=== PATIENT | female | born 1940 | race Hispanic/Latino ===

== ENCOUNTER 2018-01-20 17:29 | Emergency (ER) | payer MEDICARE ==
[~2018-01-20] VITALS: Ht 162.6 cm; Wt 68.0 kg
[~2018-01-20 17:29] MED LIST: MELOXICAM; Z.0.NORVASC2.5 MG; [UNRECOGNIZED DRUG - OTHER]; [UNRECOGNIZED DRUG - OTHER]
--- NOTE | 2018-01-20 18:38 | Diagnostic Imaging Report ---
History:Trauma Comparison studies: None Technique: Axial images were obtained from the skull base to the vertex. Coronal and sagittal images reconstructed from the axial data. Intravenous contrast: None Findings: Scalp/skull: An acute right periorbital superficial hematoma is not associated with subcutaneous emphysema or with hyperdense foreign bodies. No underlying fractures. Extra-axial spaces: No masses. No fluid collections. Brain sulci: Mildly prominent. Ventricles: Mild compensatory dilatation. No hydrocephalus. Parenchyma: Ill defined confluent hypodensities in the supratentorial white matter are small vessel ischemic changes. No masses, hemorrhage, acute or chronic cortical vascular insults. Sellar/suprasellar region: No abnormalities. Craniocervical junction: Patent foramen magnum. No Chiari one malformation. Incidental findings: Lens implants in place Atherosclerotic calcifications in the carotid siphons and vertebral arteries Impression: 1. Acute right periorbital superficial hematoma. No fractures. 2. No acute intracranial abnormalities. Chronic findings: 1. Mild generalized volume loss. 2. Moderate supratentorial white matter small vessel ischemic changes. Signed by: Dr. Seamus Bah M.D. on 01/20/2018 6:34 PM
--- NOTE | 2018-01-20 18:43 | Diagnostic Imaging Report ---
History: Trauma Comparison studies: Cervical spine CT on 01/20/2012 Technique: Axial images were obtained through the cervical region.. Coronal and sagittal images reconstructed from the axial data.. Intravenous contrast: None Findings: Fractures: None. Soft tissues: No gross abnormalities. Atlantoaxial articulation: Intact. Alignment: Normal lordosis. No scoliosis. Cervicomedullary junction: No abnormalities. The foramen magnum is patent. Vertebrae: No infection or neoplasm. Degenerative changes: Moderate at the atlantoaxial articulation. Mildly degenerated disks at C4-5 and C5-6, moderate at C6-C7. Moderate facet arthrosis on the left at C3-4, right at C4-5, bilaterally at C5-6 and C6-7 Foraminal stenosis, mild right at C3-C4, severe right, moderate left at C4-5, moderate bilaterally from C5 to T1 Degenerative spinal canal stenosis, mild at C3-4, moderate from C5 to C7 due to disc osteophyte complexes. Incidental findings: Atherosclerotic calcifications at the carotid bulbs. IMPRESSION: 1. No acute abnormalities. 2. Cannot adequately assess for ligament, spinal cord and or vascular abnormalities. 3. Degenerative spinal canal and foraminal stenosis as described. Signed by: Dr. Seamus Bah M.D. on 01/20/2018 6:39 PM
--- NOTE | 2018-01-20 18:54 | Diagnostic Imaging Report ---
PROCEDURE:X-RAY LEFT WRIST, COMPLETE COMPARISON:None. INDICATIONS:FALL WRIST PAIN FINDINGS: Marked generalized osteopenia, which limits evaluation of the bony structures. Acute, likely comminuted, intra-articular nondisplaced fracture of the distal radial metaphysis. Other bony structures show no acute, displaced fractures or dislocations. Carpal bones remain aligned with the radius Degenerative changes in the first finger carpal metacarpal joint. No lytic or blastic lesion. Soft tissue swelling surrounding the wrists. CONCLUSION: Marked generalized osteopenia, which limits evaluation of the bony structures. Acute, likely comminuted, intra-articular, nondisplaced fracture of the distal radial metaphysis Koffi Mahoney M.D. Dictated by: Koffi Mahoney M.D. on 01/20/2018 at 18:58 Electronically approved by: Koffi Mahoney M.D. on 01/20/2018 at 18:58
--- NOTE | 2018-01-20 18:55 | Diagnostic Imaging Report ---
PROCEDURE:X-RAY LEFT ELBOW, COMPLETE COMPARISON:None. INDICATIONS:FALL, ELBOW PAIN FINDINGS: Marked generalized osteopenia, which limits evaluation of the bony structures. No acute, displaced fracture or dislocation, within the limitations of the study. No lytic or blastic lesions. No anterior or posterior fat pad elevation. No significant soft tissue swelling. CONCLUSION: Marked generalized osteopenia, which limits evaluation of the bony structures. No acute, displaced fracture or dislocation, within the limitations of the study. Koffi Mahoney M.D. Dictated by: Koffi Mahoney M.D. on 01/20/2018 at 18:59 Electronically approved by: Koffi Mahoney M.D. on 01/20/2018 at 18:59
--- NOTE | 2018-01-20 18:56 | Diagnostic Imaging Report ---
PROCEDURE:X-RAY LEFT SHOULDER, COMPLETE COMPARISON:None. INDICATIONS:FALL, SHOULDER PAIN FINDINGS: Marked generalized osteopenia, which limits evaluation of the bony structures. No acute, displaced fracture or dislocation. No lytic or blastic lesion. Glenohumeral joint is grossly unremarkable. Mild degenerative changes in the acromioclavicular joint. Visualized portions of the left lung are clear. No soft tissue abnormalities. CONCLUSION: Marked generalized osteopenia, which limits evaluation of the bony structures. No acute, displaced fracture or dislocation, within the limitations of the study. Koffi Mahoney M.D. Dictated by: Koffi Mahoney M.D. on 01/20/2018 at 19:00 Electronically approved by: Koffi Mahoney M.D. on 01/20/2018 at 19:00
== END 2018-01-20 20:22 | disposition home or self-care (01) ==
LOC: ER 17:29
DX: S00.83XA Contusion of other part of head, initial encounter (principal); S52.572A Other intraarticular fracture of lower end of left radius, initial encounter for closed fracture; S50.12XA Contusion of left forearm, initial encounter; S40.022A Contusion of left upper arm, initial encounter; W01.0XXA Fall on same level from slipping, tripping and stumbling without subsequent striking against object, initial encounter; Y92.512 Supermarket, store or market as the place of occurrence of the external cause; E11.9 Type 2 diabetes mellitus without complications; I10 Essential (primary) hypertension; J44.9 Chronic obstructive pulmonary disease, unspecified; E78.5 Hyperlipidemia, unspecified; G89.29 Other chronic pain; Z87.891 Personal history of nicotine dependence
CPT/HCPCS: 70450; 72125; 99283